=== PATIENT | male | born 1990 | race Caucasian/White ===

== ENCOUNTER 2016-05-31 17:45 | Emergency (ER) | payer OTHER, MEDICAID ==
[2016-05-31 17:51] VITALS: BP 138/91; PULSE 80; RESP 18; TEMP 98.1; O2SAT 96
--- NOTE | 2016-05-31 18:15 | UCPHY ---
H & P Time Seen by Provider: 05/31/16 17:59 Patient Type: New HPI/ROS: CHIEF COMPLAINT: Right hand pain HISTORY OF PRESENT ILLNESS: 26-year-old male presents with right hand pain after a fall. He tripped and fell on his outstretched hand just prior to arrival. Since then he has had swelling of his right hand, associated with intermittent moderate pain. The pain increases with rapid movements and with palpation. No other associated injuries. ROS: No numbness, weakness, excessive bleeding, syncopal episode, other injury. Past Medical/Surgical History: Denies Smoking Status: Never smoked Physical Exam: Alert and oriented x3, no acute distress. Extremities: right hand-tenderness and swelling over the thenar eminence, no compression tenderness of the thumb or index finger, no snuffbox tenderness, range of motion of the thumb without pain. Skin: linear abrasion present over the thenar eminence, no surrounding erythema Neuro: Motor and sensory intact Vascular: Capillary refill brisk distally. Constitutional: Initial Vital Signs Temperature (C) 36.7 C 05/31/16 17:48 Heart Rate 80 05/31/16 17:48 Respiratory Rate 18 05/31/16 17:48 Blood Pressure 138/91 H 05/31/16 17:48 O2 Sat (%) 96 05/31/16 17:48 O2 Delivery Mode Room Air Allergies/Adverse Reactions: acetaminophen [Acetaminophen] Allergy (Intermediate, Verified 02/05/16 15:14) Rash Home Medications: Medication Instructions Recorded NK [No Known Home Meds] 05/31/16 Medical Decision Making - Diagnostics Imaging: X-ray independently reviewed by me reveals no acute fracture. ED Course/Re-evaluation: A Velcro thumb spica splint was placed. Neurovascularly intact after application. Departure - Departure Disposition: Home, Routine, Self-Care Clinical Impression: Contusion of right hand Qualifiers: Encounter type: initial encounter Qualified Code(s): S60.221A - Contusion of right hand, initial encounter Condition: Good Instructions: Contusion in Adults (ED) Additional Instructions: Ibuprofen 600 mg 3 times daily while the pain persists. Referrals: Nura Ledesma MD [Medical Doctor] - Follow Up Only If Needed Stand Alone Forms: Statement of Treatment - PQRS PQRS Measurement: N/A
== END 2016-05-31 18:15 | disposition home or self-care (01) ==
LOC: CED 17:45
DX: S60.221A Contusion of right hand, initial encounter (principal); W19.XXXA Unspecified fall, initial encounter
CPT/HCPCS: 73130-PO; 99203-PO; G0463-PO; L3908

== ENCOUNTER 2016-07-28 17:02 | Emergency (ER) | payer MEDICAID ==
[2016-07-28] MEDS ORDERED: IBUPROFEN 200 MG TAB PO ONE (17:09)
[2016-07-28 17:14] VITALS: BP 141/80; PULSE 96; RESP 16; TEMP 98.1; O2SAT 95
--- NOTE | 2016-07-28 17:20 | EDPHY ---
H & P Time Seen by Provider: 07/28/16 17:04 HPI/ROS: HPI Headache. 26-year-old male by private vehicle. This patient comes from work. He reports that he has had intermittent migraine headaches which she describes as frontal in nature and sometimes on the right side of his head for the last 1-2 months. Describes waking up with a headache this morning. The headache then got better through the day. The headache then gradually came back this afternoon. Now in the emergency department he feels much better denies headache or other symptoms. He is asking for a doctor's note for today. He states that he has another job he was supposed to go to this evening but does not feel like going at this time. He denies any other symptoms. He reports being completely asymptomatic at this time. ROS: Constitutional: No fever, no chills. No weakness. Eyes: No discharge. No changes in vision. ENT: No sore throat. No nasal congestion or rhinorrhea. Respiratory: No cough. No shortness of breath. Cardiac: No chest pain, no palpitations. Gastrointestinal: No abdominal pain, no vomiting, no diarrhea. Genitourinary: No hematuria. No dysuria or increased frequency with urination. Musculoskeletal: No back pain. No neck pain. No myalgias or arthralgias. Skin: No rashes. Neurological: As above. No focal weakness or altered sensation. Past medical history: Denies. Social history: Here by himself. Nonsmoker. Physical Exam: General Appearance: Alert, no distress. This patient is responding to questions appropriately and in full sentences. This patient appears well- hydrated and well-nourished. Eyes: Pupils equal and round no pallor or injection. No lid edema, erythema or injection. No photophobia. No nystagmus. Respiratory: There are no retractions, lungs are clear to auscultation with good air movement bilaterally. Cardiovascular: Regular rate and rhythm. No murmur. Neurological: Motor sensory function is grossly intact. Cranial nerves are normal. Gait is normal. Skin: Warm and dry, no rashes. Musculoskeletal: Neck is supple and nontender. No pain on flexion of his neck. Extremities are symmetrical. All joints range without pain or impingement. Psychiatric: No agitation. No depression. Database: EKG: Imaging: Procedures: Emergency department course: Patient given some ibuprofen in triage. Patient's presentation is not consistent with subarachnoid hemorrhage or other emergent cause of headache. He feels comfortable going home with a doctor's note. Follow-up and return to emergency department precautions were thoroughly reviewed with him. All of his questions were answered. He was discharged in good condition. Differential Diagnosis: The differential diagnosis on this patient includes but is not limited to migraine headache resolved. Subarachnoid hemorrhage, meningitis, encephalitis, temporal arteritis, carotid artery dissection, vertebral artery dissection unlikely. This represents a partial list of diagnoses considered. These considerations are based on history, physical exam, past history, reassessment and diagnostic testing. Smoking Status: Never smoked Constitutional: Initial Vital Signs Temperature (C) 36.7 C 07/28/16 17:04 Heart Rate 96 07/28/16 17:04 Respiratory Rate 16 07/28/16 17:04 Blood Pressure 141/80 H 07/28/16 17:04 O2 Sat (%) 95 07/28/16 17:04 O2 Delivery Mode Room Air Allergies/Adverse Reactions: acetaminophen [Acetaminophen] Allergy (Intermediate, Verified 07/28/16 17:13) Rash Home Medications: Medication Instructions Recorded NK [No Known Home Meds] 05/31/16 Medical Decision Making - Data Points Medications Given: Discontinued Medications Ibuprofen (Motrin) 600 mg PO EDNOW ONE Stop: 07/28/16 17:10 Last Admin: 07/28/16 17:14 Dose: 600 mg Departure - Departure Disposition: Home, Routine, Self-Care Clinical Impression: Headache Condition: Good Instructions: General Headache (ED) Additional Instructions: Read and follow provided instructions. Follow-up with your primary care physician in 2-3 days for re-evaluation of your headaches and consideration for referral to a neurologist.. Return to the emergency department for worsening headache, fever, neck pain, vomiting or other serious concerns. Referrals: NONE *PRIMARY CARE P,. [Primary Care Provider] - As per Instructions Stand Alone Forms: Work Excuse
== END 2016-07-28 17:32 | disposition home or self-care (01) ==
LOC: CED 17:02
DX: R51 Headache (principal)

== ENCOUNTER 2016-08-05 15:15 | Emergency (ER) | payer MEDICAID ==
[2016-08-05 15:28] VITALS: BP 118/78; PULSE 96; RESP 18; TEMP 98; O2SAT 97
--- NOTE | 2016-08-05 16:22 | EDPHY ---
H & P Time Seen by Provider: 08/05/16 16:22 HPI/ROS: 26-year-old male presents complaining of twisted his left ankle earlier today and then when he called into work they said he would need a work note. He is here to get a work note. He is able to walk and bear weight on his left foot/ ankle. He states it was markedly more swollen earlier today. Review of systems as per HPI General no fever no chills no weakness HEENT no eye pain no eye discharge. No eye redness, no sore throat Respiratory no cough, no shortness of breath Cardiac no chest pain, no peripheral edema GI no abdominal pain, no diarrhea, no constipation, no nausea, no vomiting no flank pain, no hematuria, no dysuria Musculoskeletal no myalgias, Mild joint pain Heme no easy bruising, no easy bleeding Endo no polyuria, no polydipsia Skin no rashes, no pruritus Neuro no syncope, no dizziness, no headaches Psych is no suicidal ideation, no homicidal ideation Past Medical/Surgical History: none Social History: no excessive alcohol or drug use Smoking Status: Never smoked Physical Exam: 26-year-old male Alert and oriented in no acute distress nontoxic appearance, afebrile Atraumatic normocephalic Neck no JVD Lungs clear to auscultation, no respiratory distress Heart regular rate and rhythm Extremities no cyanosis clubbing edema left ankle mild tenderness to palpation at left lateral malleolus, no swelling no ecchymosis no erythema no instability, neurovascularly intact Constitutional: Initial Vital Signs Temperature (C) 36.6 C 08/05/16 15:19 Heart Rate 96 08/05/16 15:19 Respiratory Rate 18 08/05/16 15:19 Blood Pressure 118/78 08/05/16 15:19 O2 Sat (%) 97 08/05/16 15:19 O2 Delivery Mode Room Air Allergies/Adverse Reactions: acetaminophen [Acetaminophen] Allergy (Intermediate, Verified 07/28/16 17:13) Rash Home Medications: Medication Instructions Recorded NK [No Known Home Meds] 05/31/16 Medical Decision Making ED Course/Re-evaluation: patient seen and evaluated for left ankle sprain and work note physical exam relatively benign mild tenderness palpation at left lateral malleolus no x-ray indicated impression mild left ankle strain plan Dusyt wrap, ice elevation work note x1 day Departure - Departure Disposition: Home, Routine, Self-Care Clinical Impression: Mild sprain of left ankle Condition: Good Instructions: Ankle Sprain (ED) Referrals: NONE *PRIMARY CARE P,. [Primary Care Provider] - As per Instructions [facility] [Provider Group] - As per Instructions [facility] [Clinic] - As per Instructions Stand Alone Forms: Work Excuse
== END 2016-08-05 16:32 | disposition home or self-care (01) ==
LOC: CED 15:15
DX: S93.402A Sprain of unspecified ligament of left ankle, initial encounter (principal); X58.XXXA Exposure to other specified factors, initial encounter

== ENCOUNTER 2016-12-11 17:02 | Emergency (ER) | payer MEDICAID ==
[2016-12-11 17:42] VITALS: TEMP 98.1; O2SAT 95
--- NOTE | 2016-12-11 17:58 | EDPHY ---
H & P Time Seen by Provider: 12/11/16 17:26 HPI/ROS: This patient has 2 complaints. Chief complaint is genitourinary. He explains that he had unprotected sex 2 weeks ago and starting about 10 days ago started developing some white urethral discharge. He has had increasing urinary frequency and dysuria since that time. He now has moderate intensity of the symptoms. He has never had these symptoms before. 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 He denies any injury other than gripping handle hard with repeated use when he developed some pain at the 5th metacarpophalangeal joint and developed brief carpal spasms that resolved within minutes. Reports mild to moderate pain at the 5th metacarpophalangeal joint. He reports a prior fracture at the site 10 years ago. ROS: No fevers or chills. No other constitutional symptoms HEENT: No complaints pulmonary: No complaints cardiovascular: No pallor to the affected hand GI: No nausea vomiting : No testicular pain or swelling. No flank pain. 7 point ROS is otherwise negative. Past Medical/Surgical History: Boxer's fracture-right hand 2009 Smoking Status: Former smoker Physical Exam: Physical Exam Vital signs are normal. General: No acute distress Eyes: Pupils equal and react to light. Extraocular motions are intact. Lungs: No respiratory distress. Cardiac: Brisk capillary refill is intact throughout. Pulses are 2+ and symmetric in the affected extremity. : Non circumcised penis trace amount of discharge to the glans. No testicular swelling or tenderness. No epididymal swelling or tenderness. No inguinal findings. No skin lesions. Skin: No rash or pallor. Extremities: Atraumatic normal except for right hand Right hand: Patient has mild tenderness at the 5th metacarpophalangeal joint but no malrotation or limitation range of motion. No erythema or warmth to touch. Neuro: Alert with no sensorimotor deficits in the affected extremity. Constitutional: Initial Vital Signs Temperature (C) 36.7 C 12/11/16 17:24 Heart Rate 102 H 12/11/16 17:24 Respiratory Rate 16 12/11/16 17:24 Blood Pressure 124/81 H 12/11/16 17:24 O2 Sat (%) 95 12/11/16 17:24 O2 Delivery Mode Room Air Allergies/Adverse Reactions: acetaminophen [Acetaminophen] Allergy (Intermediate, Verified 12/11/16 17:28) Rash Home Medications: Medication Instructions Recorded Doxycycline Hyclate [Vibramycin 100 mg PO BID #20 cap 12/11/16 100 MG (*)] MDM/Departure - MDM Diagnostics: Hand x-ray: Evidence of old boxer's fracture 5th metacarpal deformity but no acute findings by my interpretation Imaging Results: Imaging Impressions Hand X-Ray 12/11/16 17:33 Impression: No acute injury. Imaging: I viewed and interpreted images myself Medications Given: Discontinued Medications Ceftriaxone Sodium (Rocephin 250mg Vial) 250 mg IM EDNOW ONE PRN Reason: Protocol Stop: 12/11/16 18:36 Last Admin: 12/11/16 19:03 Dose: 250 mg ED Course/Re-evaluation: Course: Rocephin 250 mg IM to cover urethritis. Discussion: Clinical presentation is consistent with urethritis-likely chlamydia. UA is consistent with UTI is question significant STD versus additional prostatitis. Counseled patient regarding this. He will start doxycycline. He understands the need to take all 10 days. Also counseled regarding the need to contact his partner let her know that she needs to be tested and treated. Regarding his hand, I think the simply strained the 5th metacarpal phalangeal joint and has some anatomical deformity from prior boxer' s fracture that may make this joint more susceptible to sprain or strain. Patient understands the need to return to the emergency department she developed any worsening of symptoms despite the treatment plan - Depart Disposition: Home, Routine, Self-Care Clinical Impression: Urethritis Hand pain Qualifiers: Laterality: right Qualified Code(s): M79.641 - Pain in right hand Condition: Good Instructions: Nonspecific Urethritis in Men (ED), Urinary Tract Infection in Men (ED), Musculoskeletal Pain (ED) Additional Instructions: Diagnosis: 1. Urethritis 2. Urinary tract infection 3. Hand pain Plan: For hand-use ice 20 minutes at a time 3 times a day and take ibuprofen 600 mg per 6 hours as needed for pain. Limit activity with hand until symptoms improve. Symptoms should improve over the next 3-7 days. For the infection, drink plenty of fluids. 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 Wear sunscreen when her outside while on this medication to prevent sunburn. Take yogurt or probiotic while on this medication to prevent diarrhea Take all 10 days of the medication to clear the infection No sexual activity until symptoms of resolved and try to contact your partner to notify her of your infection have her tested as well. The further testing to identify which bacteria is the culprit will be available in 2 days or so. Return for any significant worsening despite the treatment plan Prescriptions: Doxycycline Hyclate [Vibramycin 100 MG (*)] 100 mg PO BID #20 cap Referrals: NONE *PRIMARY CARE P,. [Primary Care Provider] - As per Instructions
[2016-12-11 18:16] LABS: COLOR YELLOW; LEUKOCYTE ESTERASE,URINE 2+ (NEGATIVE); NITRITE,URINE NEGATIVE (NEGATIVE)
[2016-12-11 18:34] LABS: BACTERIA 1+ /hpf (NONE SEEN); MUCUS 1+ /lpf (NONE-1+); RBC,URINE 50-182 /hpf (0-3); WBC,URINE 50-182 /hpf (0-3)
[2016-12-11] MEDS ORDERED: cefTRIAXone 250 MG VIAL IM ONE (18:35)
[2016-12-11 19:15] VITALS: BP 123/91; PULSE 77; RESP 20
[2016-12-12 13:14] LABS: CHLAMYDIA AMPLIFICATION GENPRB NEGATIVE (NEGATIVE)
== END 2016-12-11 19:14 | disposition home or self-care (01) ==
LOC: CED 17:02
DX: N34.2 Other urethritis (principal); M79.641 Pain in right hand; B96.89 Other specified bacterial agents as the cause of diseases classified elsewhere; Z87.891 Personal history of nicotine dependence
CPT/HCPCS: 73130-PO; 81003-PO; 81015-PO; J0696

== ENCOUNTER 2017-03-02 12:26 | Emergency (ER) | payer MEDICAID ==
[2017-03-02 12:37] VITALS: BP 135/77; PULSE 75; RESP 18; TEMP 97.9; O2SAT 95
[2017-03-02] MEDS ORDERED: IBUPROFEN 600 MG TAB PO ONE (12:38)
--- NOTE | 2017-03-02 12:41 | EDPHY ---
H & P Time Seen by Provider: 03/02/17 12:34 HPI/ROS: This patient complains of a sore throat of moderate intensity worse with swallowing that started over the past 24 hr. He has not tried any medications for this prior to arrival. He reports no other associated symptoms. He notes no other exacerbating factors for the sore throat. He came in by private vehicle for evaluation. ROS: Constitutional: No fevers or chills. No fatigue. HEENT: No coryza or sinus pressure. No ear pain. No worse voice. Pulmonary: No coughing. Cardiovascular: No complaints new line GI: No nausea vomiting. Integumentary: No skin rash Musculoskeletal: No arthralgias. 7 point ROS is otherwise negative. Past Medical/Surgical History: Otherwise healthy Smoking Status: Former smoker Physical Exam: Physical Exam Vital signs are normal. General: No acute distress HEENT: Nose: Clear bilaterally. No sinus tenderness to percussion. Ears: External canals and tympanic membranes are clear with no erythema or abnormal findings bilaterally. Oropharynx: No significant erythema or exudates. No dysphonia. No drooling or stridor. Eyes: Pupils equal and react to light. Extraocular motions are intact. Neck: Supple with no meningismus. No lymphadenopathy Lungs: Clear to auscultation bilaterally with no rales, rhonchi or wheeze. No respiratory distress. Cardiac: Regular rate and rhythm with no murmur gallop or rub Skin: No rash or pallor. Neuro: Alert with no focal deficits noted. Initial differential diagnosis: Viral pharyngitis versus strep pharyngitis Constitutional: Initial Vital Signs Temperature (C) 36.6 C 03/02/17 12:35 Heart Rate 75 03/02/17 12:35 Respiratory Rate 18 03/02/17 12:35 Blood Pressure 135/77 H 03/02/17 12:35 O2 Sat (%) 95 03/02/17 12:35 O2 Delivery Mode Room Air Allergies/Adverse Reactions: acetaminophen [Acetaminophen] Allergy (Intermediate, Verified 03/02/17 12:35) Rash Home Medications: Medication Instructions Recorded NK [No Known Home Meds] 03/02/17 MDM/Departure - MDM Diagnostics: Rapid strep is negative Medications Given: Discontinued Medications Ibuprofen (Motrin) 600 mg PO EDNOW ONE Stop: 03/02/17 12:39 Last Admin: 03/02/17 12:54 Dose: 600 mg ED Course/Re-evaluation: Ibuprofen 600 mg p.o. Discussion: Patient has a benign exam and a negative rapid strep test. Findings are consistent with viral pharyngitis. I counseled regarding this. - Depart Disposition: Home, Routine, Self-Care Clinical Impression: Viral pharyngitis Condition: Good Instructions: Pharyngitis (ED) Additional Instructions: Diagnosis: Viral pharyngitis Plan: Ibuprofen for sore throat as needed Symptoms should gradually improve over the next 3-7 days Return for any significant worsening despite treatment plan
== END 2017-03-02 13:37 | disposition home or self-care (01) ==
LOC: CED 12:26
DX: J02.8 Acute pharyngitis due to other specified organisms (principal); B97.89 Other viral agents as the cause of diseases classified elsewhere; Z87.891 Personal history of nicotine dependence
CPT/HCPCS: 87880-PO

== ENCOUNTER 2017-12-13 17:45 | Emergency (ER) | payer MEDICAID ==
[2017-12-13 17:56] VITALS: BP 112/69
[2017-12-13] MEDS ORDERED: IBUPROFEN 600 MG TAB PO ONE (18:09)
--- NOTE | 2017-12-13 18:17 | EDPHY ---
H & P Time Seen by Provider: 12/13/17 17:56 HPI/ROS: HPI Nasal congestion, sore throat. 27-year-old immunocompetent male by private vehicle. This patient reports that since yesterday he has had nasal condition was sore throat. Worse today. He reports his throat pain is worse when he swallows. No difficulty breathing. No voice changes. Denies stridor. He has also had intermittent dry cough. Came here from work. ROS: Constitutional: No fever, no chills. No weakness. Eyes: No discharge. No changes in vision. ENT: As above. Respiratory: As above. No shortness of breath. Cardiac: No chest pain, no palpitations. Gastrointestinal: No abdominal pain, no vomiting, no diarrhea. Musculoskeletal: No back pain. No neck pain. No myalgias or arthralgias. Skin: No rashes. Neurological: No headache. No focal weakness or altered sensation. Past medical history: He denies any significant past medical history. Social history: Nonsmoker. Here by himself. Denies alcohol. Physical Exam: General Appearance: Alert, no distress. This patient is responding to questions appropriately and in full sentences. This patient appears well- hydrated and well-nourished. Eyes: Pupils equal and round no pallor or injection. No lid edema, erythema or injection. ENT, Mouth: Mucous membranes are moist. The pharyngeal tissues are unremarkable. No edema or swelling. No elevation of the tongue. No asymmetry suggestive of abscess. Mild diffuse pharyngeal erythema, no exudates. Upper airway sounds are clear on auscultation. No stridor. No voice changes Respiratory: There are no retractions, lungs are clear to auscultation with good air movement bilaterally. Cardiovascular: Regular rate and rhythm. No murmur. Neurological: Motor sensory function is grossly intact. Cranial nerves are normal. Gait is normal. Skin: Warm and dry, no rashes. Musculoskeletal: Neck is supple and nontender. No significant cervical, submandibular, submental lymphadenopathy. Extremities are symmetrical. All joints range without pain or impingement. Psychiatric: No agitation. No depression. Database: Rapid strep: Negative. EKG: Imaging: Procedures: Emergency department course: Triage vital signs reviewed and are normal. Rapid strep assay is negative. Patient given 600 mg of ibuprofen. He does not appear toxic. His presentation is consistent with a viral upper respiratory infection. Plan will be to treat him supportively with ibuprofen and oral hydration. He feels comfortable going home and I feel he is safe for discharge. Follow-up and return to emergency department precautions reviewed with him. All of his questions were answered. He was discharged from the emergency department in good condition. Differential Diagnosis: The differential diagnosis on this patient includes but is not limited to viral upper respiratory infection. Streptococcal pharyngitis, retropharyngeal abscess , peritonsillar abscess, tracheitis, epiglottitis, other serious bacterial infection unlikely. This represents a partial list of diagnoses considered. These considerations are based on history, physical exam, past history, reassessment and diagnostic testing. Smoking Status: Former smoker Constitutional: Initial Vital Signs Temperature (C) 36.9 C 12/13/17 17:51 Heart Rate 77 12/13/17 17:51 Respiratory Rate 16 12/13/17 17:51 Blood Pressure 112/69 12/13/17 17:51 O2 Sat (%) 94 12/13/17 17:51 O2 Delivery Mode Room Air Allergies/Adverse Reactions: acetaminophen [Acetaminophen] Allergy (Intermediate, Verified 12/13/17 17:56) Rash Home Medications: Medication Instructions Recorded NK [No Known Home Meds] 03/02/17 Medical Decision Making - Data Points Medications Given: Discontinued Medications Ibuprofen (Motrin) 600 mg PO EDNOW ONE Stop: 12/13/17 18:10 Last Admin: 12/13/17 18:12 Dose: 600 mg Point of Care Test Results: Strep Strep Throat Swab Collection 12/13/17 Date Strep Throat Swab Swab 18:00 Collection Time Strep Result Not Detected Departure - Departure Disposition: Home, Routine, Self-Care Clinical Impression: Upper respiratory infection, Acute pharyngitis Condition: Good Instructions: Pharyngitis (ED), Upper Respiratory Infection (ED) Additional Instructions: Read and follow provided instructions. Follow-up with your primary care physician in 1-2 days for re-evaluation. Ibuprofen dosin mg every 6 hours with meals for the next 3 days only. Take only as needed for pain. You can also take either NyQuil, Robitussin or Dimetapp up at night to help you sleep. This will also help to decongest you and dry her nasal passages. Take as directed. Return to the emergency department for worsening symptoms, high fever, difficulty breathing, voice changes, sensation of swelling in your throat or other serious concerns. Referrals: NONE *PRIMARY CARE P,. [Primary Care Provider] - As per Instructions
== END 2017-12-13 18:35 | disposition home or self-care (01) ==
LOC: CED 17:45
DX: J06.9 Acute upper respiratory infection, unspecified (principal); J02.9 Acute pharyngitis, unspecified; Z87.891 Personal history of nicotine dependence

== ENCOUNTER 2018-08-25 15:07 | Emergency (ER) | payer SELFPAY, MEDICAID | END 2018-08-25 16:45 | disposition home or self-care (01) | LOC: CED 15:07 ==